=== PATIENT | female | born 1985 ===

== ENCOUNTER → 2018-06-08 | Outpatient (CLI) | payer OTHER ==
[~2018-06-08] MED LIST: IBUP800 PO; OXYACE5T PO; PRENATAL VITAMINS
[2018-06-10 14:07] LABS: HPV 16 Negative (Negative); HPV 18 Negative (Negative); HPV OTHER HR TYPES Negative (Negative)
== END | disposition home or self-care (01) ==
LOC: LAB 11:46 → LAB SHORT 11:46
PROVIDERS: Obstetrics & Gynecology
DX: Z01.419 Encounter for gynecological examination (general) (routine) without abnormal findings (principal)
CPT/HCPCS: 87624; G0123

== ENCOUNTER 2023-07-28 17:10 | Emergency (ER) | payer OTHER ==
[~2023-07-28] VITALS: Ht 160 cm; Wt 66.7 kg
[2023-07-28 18:15] LABS: Source, Urine Clean Catch
[2023-07-28 18:22] LABS: BASOPHILS ABSOLUTE AUTO 0.06 K/mm3 (0.00-0.23); BASOPHILS PERCENT AUTO 1 % (0-2); EOSINOPHILS ABSOLUTE AUTO 0.03 K/mm3 (0.00-0.68); EOSINOPHILS PERCENT AUTO 0 % (0-6); IMMATURE GRAN ABSOLUTE AUTO 0.03 K/mm3 (0.00-0.10); IMMATURE GRAN PERCENT AUTO 0 % (0-1); LYMPHOCYTES ABSOLUTE AUTO 2.52 K/mm3 (0.84-5.20); LYMPHOCYTES PERCENT AUTO 26 % (21-46); MONOCYTES ABSOLUTE AUTO 0.84 K/mm3 (0.16-1.47); MONOCYTES PERCENT AUTO 9 % (4-13); Mean Corpuscular HGB 28.4 pg (26.0-34.0); Mean Corpuscular HGB Conc 34.1 g/dL (31.5-36.5); Mean Corpuscular Volume 83 fL (80-100); Mean Platelet Volume 9.5 fL (9.1-12.4); NEUTROPHILS ABSOLUTE AUTO 6.32 K/mm3 (1.96-9.15); NEUTROPHILS PERCENT AUTO 65 % (41-73); Platelet Count 445 K/mm3 (150-400); RDW Coefficient Variation 12.6 % (11.7-14.2); RDW Standard Deviation 38.1 fL (35.1-46.3); Red Blood Cell Count 5.28 M/mm3 (3.80-5.20)
[2023-07-28 18:29] LABS: Albumin, Blood 4.7 g/dL (3.4-5.0); Albumin/Globulin Ratio 1.1 (0.8-1.8); Bilirubin, Total 0.7 mg/dL (0.1-1.0); Calcium, Blood 9.8 mg/dL (8.5-10.1); Creatinine, Blood 0.76 mg/dL (0.40-1.00); Globulin, Blood 4.1 g/dL (2.2-4.0); Total Protein, Blood 8.8 g/dL (6.4-8.2)
[2023-07-28 18:35] LABS: Appearance, Urine Clear (Clear); Bilirubin, Urine Neg (Neg); Blood, Urine Neg (Neg); Glucose Qualitative, Urine Neg (Neg); Ketones, Urine Neg (Neg); Leukocyte Esterase, Urine Neg (Neg); Nitrite, Urine Neg (Neg); Protein, Urine Neg (Neg); Specific Gravity, Urine 1.005 (1.003-1.022); Urobilinogen, Urine NORM (Normal)
[2023-07-28 19:27] LABS: Color, Urine Pale Yellow (P-Yellow)
[2023-07-28] MEDS ORDERED: Ketorolac Tromethamine 30mg Vial IV ONE (21:35)
[2023-07-28] MEDS ORDERED: Droperidol 5 mg/2 ml Vial IV ONE (21:35)
[2023-07-28] MEDS ORDERED: BENADRYL25 M1 (23:50)
[2023-07-28] MEDS ORDERED: XANAX0.25 MG (23:50)
[2023-07-28] MEDS ORDERED: GABA100 (23:51)
[2023-07-29] MEDS ORDERED: TraZODone HCl 50 MG Tab PO ONE (02:35)
[2023-07-29] MEDS ORDERED: TRAZ50 PO (02:36)
[2023-07-29 03:30] VITALS: BP 115/80
== END 2023-07-29 03:40 | disposition home or self-care (01) ==
LOC: ER 17:10
PROVIDERS: Nurse Practitioner
DX: R07.89 Other chest pain (principal); R00.2 Palpitations; R06.02 Shortness of breath; R20.2 Paresthesia of skin; G47.00 Insomnia, unspecified; R10.2 Pelvic and perineal pain; Z88.5 Allergy status to narcotic agent
CPT/HCPCS: 71046; 71260; 74177; 80053; 81003; 81025; 84443; 84484; 85025; 85379; 93005; 93010; 96374-59; 96375; 99285-25; A9270; J1790; J1885; Q9967